=== PATIENT | female | born 2000 | race Hispanic/Latino ===

== ENCOUNTER 2024-10-24 12:06 | Emergency (ER) | payer MEDICAID, SELFPAY ==
[2024-10-24 12:17] VITALS: BP 122/75
[2024-10-24 12:33] LABS: Hematocrit 41.2 % (37.0-47.0); Hemoglobin 14.3 g/dL (12.0-16.0); Mean Corp Hgb Conc. 34.7 g/dL (33.0-37.0); Mean Corpuscular Volume 87.7 fL (81.0-99.0); Nucleated Red Blood Cells % 0 %; Platelet Count 311 10^3/uL (130-400); Red Cell Dist. Width 12.4 % (11.5-14.5)
[2024-10-24 12:48] LABS: HCG, Serum Qualitative Screen Negative
[2024-10-24 12:54] LABS: ALT (SGPT) 34 U/L (0-35); AST (SGOT) 26 U/L (14-36); Albumin 5.0 g/dl (3.5-5.0); Alkaline Phosphatase 88 U/L (38-126); Blood Urea Nitrogen 18 mg/dl (7-17); Calcium 10.4 mg/dl (8.4-10.2); Carbon Dioxide 26 mmol/L (22-30); Chloride 105 mmol/L (98-107); Glucose 97 mg/dl (70-99); Potassium 4.9 mmol/L (3.5-5.1); Sodium 138 mmol/L (135-145); Total Protein 7.4 g/dl (6.3-8.2); eGFR > 60.00
--- NOTE | 2024-10-24 15:27 | ED.GENMED ---
History of Present Illness
General
Chief Complaint: Skin Problem
Source: patient
Time Seen by Provider: 10/24/24 15:15
History of Present Illness
History of Present Illness:
Note:
CHIEF COMPLAINT(S)
The patient presented with concerns about a ruptured bump in the groin area.
HISTORY OF PRESENT ILLNESS
The patient is a 24-year-old female visiting from [place]. She mentioned that her primary physician suspected lupus based on various health issues and scheduled an antinuclear antibody (WILVER) panel. However, she was advised to delay further testing
until she returns home. One significant concern is a bump in her groin area, which ruptured and began bleeding on a recent Thursday morning. This is unprecedented in her experience, and it has caused concern among her family members. The lesion was
initially described as a potential lump behind an ear, once the size of a golf ball, but now it is much smaller following drainage. The patient sought medical attention to ensure it was not an emergency.
EXTERNAL RECORDS REVIEWED
An antinuclear antibody (WILVER) panel was performed, yielding positive results.
PHYSICAL EXAM
General: Alert, no acute distress.
Skin: Warm, dry.
Head: Normocephalic, atraumatic.
Neck: Supple, trachea midline.
Eye Ears, Nose, Mouth and Throat: Oral mucosa moist.
Cardiovascular: Normal peripheral perfusion, No edema.
Respiratory: Respirations are non-labored.
Gastrointestinal: Abdomen nondistended.
Back: Normal range of motion, Normal alignment.
Musculoskeletal: Normal ROM, normal strength.
Neurological: Alert and oriented to person, place, time, and situation, No focal neurological deficit observed.
Psychiatric: Cooperative, appropriate mood & affect.
The patient had induration, small area of less than one centimeter with slight serous drainage at the site of the ruptured bump. There was no lymphadenopathy detected in the inguinal regions bilaterally, and no surrounding cellulitis was noted.
PLAN
1. Encourage aggressive warm compresses or soaks in a bath to promote drainage of the affected area. Recommend doing this every hour for 20 minutes while ensuring the temperature is warm enough, but not to the point of burning.
2. Apply a topical antibiotic ointment to the area between warm compress sessions to prevent further infection.
3. Advise the patient to seek medical attention if the area becomes more painful, enlarges, becomes red, or shows signs of further infection.
4. Instruct the patient to avoid excessive squeezing of the area to prevent spreading the infection under the skin.
5. Provide written instructions and advice for ongoing home care and follow-up with primary care for the positive WILVER panel once back in [place].
6. Discuss the current problem as separate from potential lupus diagnosis and assure continuation of lupus diagnostic workup upon return.
DIFFERENTIAL DIAGNOSIS
The Differential Diagnosis includes, in no particular order and is not limited to:
1. Folliculitis
2. Epidermoid cyst
3. Hidradenitis suppurativa
4. Abscess
5. Infected sebaceous cyst
6. Suppurative lymphadenitis
7. Cellulitis
8. Pilonidal cyst
9. Inguinal hernia
10. Skin cancer (less likely given the clinical presentation)
Disposition:
SUMMARY OF ENCOUNTER
The patient, a 24-year-old female, presented with concerns about a ruptured bump in her groin area. It was evaluated and found to be consistent with folliculitis, with a small area of redness to the right of her labia. The area was draining but did
not require incision and drainage. Aggressive warm compresses and topical antibiotic ointment were recommended.
PLAN
1. Encourage aggressive warm compresses to promote drainage.
2. Apply a topical antibiotic ointment to prevent infection.
3. Instruct the patient to return if symptoms worsen or the area increases in size, as it may require incision and drainage.
PATIENT EDUCATION AND COUNSELING
The patient was educated on the importance of warm compresses and the use of topical antibiotic ointment. She was advised regarding symptoms to monitor that would require her to seek further medical attention.
FOLLOW-UP INSTRUCTIONS
The patient was instructed to follow up if there is any worsening of symptoms or an increase in the size of the affected area.
MEDICATION RECONCILIATION
A topical antibiotic ointment was recommended for application between warm compresses.
MEDICAL DECISION MAKING
-Complexity of Data Reviewed: Chronic conditions affecting care: Folliculitis.
-Data:
Category 1
Non-emergency department records reviewed, positive result on the antinuclear antibody (WILVER) panel.
Category 2
Clinical information was obtained from primary care suspicion about lupus.
-Risk:
Prescription medication was recommended in the form of a topical antibiotic ointment.
DIAGNOSIS
1. L02.32 - Folliculitis, groin area.
Phy Exam
Physical Exam
Physical Exam:
.
Course
Orders/Labs/Results
Orders:
Orders
10/24/24 12:20
Test Result ONCE
10/24/24 12:24
Complete Blood Count/With Diff Urgent
Comprehensive Metabolic Panel Urgent
HCG, Serum Qualitative Screen Urgent
Abnormal Lab Results
10/24/24
12:24
BUN 18 H mg/dl
(7-17)
Calcium 10.4 H mg/dl
(8.4-10.2)
10/24/24 12:24
10/24/24 12:24
Vital Signs
Initial and Last Documented VS:
Initial Vital Signs
Temp Pulse Resp BP Pulse Ox
98.2 F 66 20 122/75 100
10/24/24 12:17 10/24/24 12:17 10/24/24 12:17 10/24/24 12:17 10/24/24 12:17
Last Documented Vital Signs
Temp Pulse Resp BP Pulse Ox
98.2 F 66 20 122/75 100
10/24/24 12:17 10/24/24 12:17 10/24/24 12:17 10/24/24 12:17 10/24/24 12:17
*Pulse Oximetry
SaO2: 100
Oxygen Mode of Delivery: Room air
Patient hypoxic: no
*Critical Care Note
Total Time (30-74mins, 75-104mins- exclusive of procedures): Not Applicable
ED Attending Note
-
Portions of this chart may have been created with voice recognition software.� Occasional wrong word or��sound alike� substitutions may have occurred due to the inherent limitations of voice recognition software.
Discharge Plan
Departure
Patient Disposition: Home (Routine Discharge)
Date of Disposition: 10/24/24
Time of Disposition: 15:27
Patient with high blood pressure during this ER visit?: No
Discharge Problem:
Folliculitis
Instructions: Bacterial folliculitis
Activity Restrictions/Additional Instructions:
Please apply warm compresses as discussed. Return immediately for increase in the size of the lesion, surrounding redness, fevers, worsening pain or any other concerns. Apply topical antibiotic ointment 3 times a day for 1 week.
Discharge Date and Time
Print Language: SLOV[place]
== END 2024-10-24 15:47 | disposition home or self-care (01) ==
LOC: EMR 12:06
PROVIDERS: Emergency Medicine; EMERGENCY PHYSICIAN Emergency Medicine
DX: L02.224 Furuncle of groin (principal)
CPT/HCPCS: 99283; 80053; 84703; 85025